=== PATIENT | female | born 2000 | race Caucasian/White ===

== ENCOUNTER → 2020-05-20 14:40 | Outpatient (CLI) | payer OTHER, MEDICAID, SELFPAY ==
[2020-05-20 15:17] LABS: Hematocrit 39.1 % (36-46); Hemoglobin 13.1 g/dL (12.0-16.0); Mean Corpuscular HGB Conc 33.4 % (30-36); Mean Corpuscular Hemoglobin 30.7 PG (26-34); Mean Corpuscular Volume 91.8 fL (80-100); Platelet Count 184 X10^3/uL (150-400); Red Blood Cell Count 4.26 X10^6/uL (4.0-5.2); Red Cell Distribution Width 13.5 % (11.6-14.8); White Blood Cell Count 6.8 X10^3/uL (4.5-11.0)
[2020-05-20 15:26] LABS: HEMOLYSIS < 15 (0-50); Iron 46 ug/dL (37-170)
[2020-05-20 15:43] LABS: Percent Iron Saturation 9 % (15-50); Total Iron Binding Capacity 524 ug/dL (265-497); Transferrin 407 mg/dL (206-381)
[2020-05-20 15:58] LABS: TSH w/ Reflex to FT4 1.61 uIU/mL (0.47-4.68)
== END ==
PROVIDERS: PCP Registered Nurse Diabetes Educator; Referring Provider Registered Nurse Diabetes Educator; Visit Provider Registered Nurse Diabetes Educator
DX: D64.9 Anemia, unspecified (principal); F32.9 Major depressive disorder, single episode, unspecified; R53.83 Other fatigue
CPT/HCPCS: 36415; 83540; 83550; 84443; 85027